=== PATIENT | male | born 1980 | race Two or more races ===

== ENCOUNTER 2019-06-28 06:54 | Emergency (ER) | payer OTHER ==
[~2019-06-28] VITALS: Ht 167.6 cm; Wt 94.0 kg
[2019-06-28 07:02] VITALS: BP 129/63
[2019-06-28] MEDS ORDERED: FLUORESCEIN OPHTHALMIC 1 MG STRIP ONE (07:12)
[2019-06-28] MEDS ORDERED: PROPARACAINE OPHTH 0.5%, 15ML ONE (07:12)
--- NOTE | 2019-06-28 07:24 | NUR ---
VISUAL ACUITIES DONE AND GIVEN TO RENETTA AND CHARTED. MEDS AT BEDSIDE.
[2019-06-28] MEDS ORDERED: PROPARACAINE OPHTH 0.5%, 15ML EACHEYE ONE (07:30)
[2019-06-28] MEDS ORDERED: DIPH,PERTUSS(ACELL),TET VAC/PF 0.5 ML IM-VACC ONE ×2 (07:30→07:48)
[2019-06-28] MEDS ORDERED: FLUORESCEIN OPHTHALMIC 1 MG STRIP EACHEYE ONE (07:30)
== END 2019-06-28 09:10 | disposition home or self-care (01) ==
LOC: ED 09:04
DX: T15.01XA Foreign body in cornea, right eye, initial encounter (principal); X58.XXXA Exposure to other specified factors, initial encounter; Y93.89 Activity, other specified; Y92.89 Other specified places as the place of occurrence of the external cause; Y99.8 Other external cause status
CPT/HCPCS: 65222; 90471; 90715